=== PATIENT | born 2000 ===

== ENCOUNTER 2024-06-22 12:14 | Outpatient (REF) | payer SELFPAY ==
[2024-06-22 13:26] LABS: ALT 24 U/L; AST 14 U/L; Alkaline Phosphatase 53 U/L; Bilirubin, Direct 0.1 mg/dL; Bilirubin, Total 0.5 mg/dL; Total Protein 7.4 g/dL
[2024-06-23 09:33] LABS: Hepatitis C Ab w Rflx HCV PCR Negative (Negative)
[2024-06-23 09:35] LABS: HBs Antibody, Quant >1000.0 mIU/mL (See Note); Hepatitis B Surface Ab Positive (See Note)
[2024-06-23 09:44] LABS: Hepatitis B Surface Ag Negative (Negative)
[2024-06-23 09:51] LABS: HIV-1/2 Ag & Ab Screen Negative (Negative)
== END 2024-06-22 12:15 | disposition home or self-care (01) ==
LOC: LBO 12:14
DX: Z77.21 Contact with and (suspected) exposure to potentially hazardous body fluids (principal)
CPT/HCPCS: 36415; 80076; 86706; 86803; 87340; 87389